=== PATIENT | female | born 1985 | race Two or more races ===

== ENCOUNTER 2016-07-18 19:40 | Outpatient (CLI) | payer MEDICAID ==
[2016-07-19 00:58] VITALS: BMI 40.4
== END 2016-07-18 21:30 | disposition home or self-care (01) ==
LOC: FBCOUT 19:40 → FBC 19:40 → FBCOUT 21:30
PROVIDERS: ATTEND Registered Nurse
DX: O26.899 Other specified pregnancy related conditions, unspecified trimester (principal); Z3A.00 Weeks of gestation of pregnancy not specified
CPT/HCPCS: 59025; G0463